=== PATIENT | female | born 1995 | race Caucasian/White ===

== ENCOUNTER 2022-03-21 08:51 | Emergency (ER) | payer SELFPAY ==
[~2022-03-21] VITALS: Ht 162.6 cm; Wt 64.0 kg
[2022-03-21] MEDS ORDERED: ACETAMINOPHEN 325MG TABLET PO ONE (11:00)
[2022-03-21] MEDS ORDERED: TOPUD PO (12:09)
[2022-03-21 13:12] VITALS: BP 116/74
== END 2022-03-21 13:14 | disposition home or self-care (01) ==
LOC: ER 09:15
DX: R07.89 Other chest pain (principal); Z98.890 Other specified postprocedural states
CPT/HCPCS: 29125; 71045; 73100; 81025; 99284